=== PATIENT | male | born 1955 | race Caucasian/White ===

== ENCOUNTER 2021-09-03 07:48 | Outpatient (CLI) | payer OTHER | END 2021-09-03 08:18 | disposition home or self-care (01) | LOC: LAB 07:48 | PROVIDERS: ATTEND Orthopaedic Surgery | DX: D64.9 Anemia, unspecified (principal); E88.9 Metabolic disorder, unspecified; D68.8 Other specified coagulation defects; N39.0 Urinary tract infection, site not specified; A49.02 Methicillin resistant Staphylococcus aureus infection, unspecified site; E11.9 Type 2 diabetes mellitus without complications; I10 Essential (primary) hypertension; I49.9 Cardiac arrhythmia, unspecified; Z76.89 Persons encountering health services in other specified circumstances ==

== ENCOUNTER 2021-09-14 08:53 | Day surgery (SDC) | payer OTHER ==
[~2021-09-14] VITALS: Ht 175.3 cm; Wt 95.3 kg
[~2021-09-14 08:53] MED LIST: DIOVAN40 MG PO
== END 2021-09-14 16:10 | disposition home or self-care (01) ==
LOC: CIR.AMB 08:53
PROVIDERS: ATTEND Orthopaedic Surgery
DX: M23.261 Derangement of other lateral meniscus due to old tear or injury, right knee (principal); M22.42 Chondromalacia patellae, left knee; M12.262 Villonodular synovitis (pigmented), left knee; M22.12 Recurrent subluxation of patella, left knee; Z20.822 Contact with and (suspected) exposure to COVID-19; Z99.89 Dependence on other enabling machines and devices; G47.33 Obstructive sleep apnea (adult) (pediatric); E66.9 Obesity, unspecified